=== PATIENT | female | born 1990 | race Caucasian/White ===

== ENCOUNTER → 2018-04-28 | Emergency (ER) | payer OTHER ==
[~2018-04-28] VITALS: Ht 172.7 cm; Wt 53.0 kg
[~2018-04-28] MED LIST: ALBU8.5H8 IH; AZIT-63 PO; CefTRIAXone 2gm/D5W 50ml 50 ML IV ONE; azithromycin 250mg tablet PO ONE; ketorolac trometh. 30mg/ml inj. IV ONE
[2018-04-28 14:44] VITALS: BP 147/99
[2018-04-28 14:47] LABS: BASOPHILS % (AUTO) 0.4 % (0-1); EOSINOPHILS # (AUTO) 0.1 X10'3 (0-0.9); EOSINOPHILS % (AUTO) 0.7 % (0-6); HEMATOCRIT 39.4 % (35.0-45.0); HEMOGLOBIN 13.2 g/dl (12.0-16.0); LYMPHOCYTES # (AUTO) 1.4 X10'3 (1.1-4.8); LYMPHOCYTES % (AUTO) 16.4 % (21-51); MEAN CORPUSCULAR HEMOGLOBIN 27.5 PG (27.0-31.0); MEAN CORPUSCULAR HGB CONC 33.4 g/dL (33.0-36.5); MEAN CORPUSCULAR VOLUME 82.5 FL (78-98); MEAN PLATELET VOLUME 7.8 FL (7.4-10.4); MONOCYTES # (AUTO) 0.9 X10'3 (0-0.9); MONOCYTES % (AUTO) 10.2 % (2-12); NEUTROPHILS # (AUTO) 6.3 X10'3 (1.8-7.7); NEUTROPHILS % (AUTO) 72.3 % (42-75); PLATELET COUNT 327 X10'3 (140-440); RED BLOOD COUNT 4.78 X10'6 (4.20-5.60); RED CELL DISTRIBUTION WIDTH 13.4 % (11.5-14.5); WHITE BLOOD COUNT 8.7 X10'3 (4.5-11.0)
[2018-04-28 14:57] LABS: ALANINE AMINOTRANSFERASE 223 U/L (12-78); ALBUMIN 3.4 G/DL (3.4-5.0); ALBUMIN/GLOBULIN RATIO 0.7 (1.1-1.5); ALKALINE PHOSPHATASE 142 IU/L (46-116); ANION GAP 10 (8-16); ASPARTATE AMINO TRANSFERASE 182 U/L (10-37); BILIRUBIN,TOTAL 0.3 MG/DL (0.1-1.0); BLOOD UREA NITROGEN 6 MG/DL (7-18); BUN/CREATININE RATIO 8.8 (6.6-38.0); CALCIUM 9.1 MG/DL (8.5-10.1); CHLORIDE 101 MMOL/L (99-107); CREATININE 0.68 MG/DL (0.40-0.90); GLUCOSE 101 MG/DL (70-104); POTASSIUM 3.9 MMOL/L (3.5-5.1); SODIUM 140 MMOL/L (135-145); TOTAL CARBON DIOXIDE 28.7 MMOL/L (24-32); TOTAL PROTEIN 8.3 G/DL (6.4-8.2); eGFR > 90 ML/MIN
== END | disposition home or self-care (01) ==
LOC: ER 14:13
DX: J18.9 Pneumonia, unspecified organism (principal); F15.90 Other stimulant use, unspecified, uncomplicated; Z79.899 Other long term (current) drug therapy
CPT/HCPCS: 36415; 71046; 80053; 83605; 84145; 85025; 87040; 96365; 96375; 99284; J0696; J1885

== ENCOUNTER 2021-07-02 01:30 | Emergency (ER) | payer MEDICAID ==
[~2021-07-02] VITALS: Ht 172.7 cm; Wt 79.5 kg
[~2021-07-02 01:30] MED LIST changes: +ALBU8.5H17 IH; -ALBU8.5H8 IH; -AZIT-63 PO; -CefTRIAXone 2gm/D5W 50ml 50 ML IV ONE; -azithromycin 250mg tablet PO ONE; -ketorolac trometh. 30mg/ml inj. IV ONE
[2021-07-02 02:14] LABS: ALANINE AMINOTRANSFERASE 378 U/L (12-78); ALBUMIN 4.2 G/DL (3.4-5.0); ALBUMIN/GLOBULIN RATIO 0.7 (1.1-1.5); ALKALINE PHOSPHATASE 194 IU/L (46-116); ANION GAP 11 (8-16); ASPARTATE AMINO TRANSFERASE 179 U/L (10-37); BILIRUBIN,TOTAL 0.8 MG/DL (0.1-1.0); BLOOD UREA NITROGEN 24 MG/DL (7-18); BUN/CREATININE RATIO 21.8 (6.6-38.0); CALCIUM 9.7 MG/DL (8.5-10.1); CHLORIDE 98 MMOL/L (99-107); GLUCOSE 116 MG/DL (70-104); LIPASE 93 U/L (73-393); POTASSIUM 3.9 MMOL/L (3.5-5.1); SODIUM 134 MMOL/L (135-145); TOTAL CARBON DIOXIDE 25.3 MMOL/L (24-32); TOTAL PROTEIN 10.2 G/DL (6.4-8.2); eGFR 59 ML/MIN
[2021-07-02 02:22] LABS: BASOPHILS % (AUTO) 0.3 % (0-1); EOSINOPHILS # (AUTO) 0.4 X10'3 (0-0.9); EOSINOPHILS % (AUTO) 2.7 % (0-6); HEMATOCRIT 51.4 % (35.0-45.0); HEMOGLOBIN 17.7 g/dl (12.0-16.0); LYMPHOCYTES # (AUTO) 2.2 X10'3 (1.1-4.8); LYMPHOCYTES % (AUTO) 15.2 % (21-51); MEAN CORPUSCULAR HEMOGLOBIN 28.8 PG (27.0-31.0); MEAN CORPUSCULAR HGB CONC 34.4 g/dL (33.0-36.5); MEAN CORPUSCULAR VOLUME 83.5 FL (78-98); MEAN PLATELET VOLUME 8.6 FL (7.4-10.4); MONOCYTES # (AUTO) 1.1 X10'3 (0-0.9); MONOCYTES % (AUTO) 7.3 % (2-12); NEUTROPHILS % (AUTO) 74.5 % (42-75); PLATELET COUNT 341 X10'3 (140-440); RED BLOOD COUNT 6.15 X10'6 (4.20-5.60); RED CELL DISTRIBUTION WIDTH 13.4 % (11.5-14.5); WHITE BLOOD COUNT 14.8 X10'3 (4.5-11.0)
[2021-07-02] MEDS ORDERED: loperamide 2mg capsule PO ONE (03:45)
[2021-07-02] MEDS ORDERED: normal saline 1000ML IV soln IVB ONE (03:45)
[2021-07-02] MEDS ORDERED: ondansetron/PF 4mg/2ml inj IV ONE (03:45)
[2021-07-02 04:00] LABS: URINE HCG NEGATIVE (NEG)
[2021-07-02 04:01] LABS: CLARITY,URINE CLOUDY (Clear); GLUCOSE, URINE NEGATIVE (Neg); KETONES,URINE TRACE mg/dl (Neg); LEUKOCYTE ESTERASE ,URINE TRACE (Neg); NITRITES, URINE NEGATIVE (Neg); OCCULT BLOOD,URINE NEGATIVE (Neg); PH,URINE 5.5 (4.8-8.0); PROTEIN,URINE 30 mg/dl (Neg); UROBILINOGEN,URINE 0.2 E.U/dL (0.2-1.0)
[2021-07-02] MEDS ORDERED: ondansetron 4mg rapidly disintigrating tab PO ONE (04:10)
[2021-07-02 04:17] LABS: COLOR,URINE DARK YELLOW (Yellow); UA COLLECTION TYPE CLN CATCH MIDSTREAM
[2021-07-02 04:25] LABS: BACTERIA,URINE 1+ /HPF (Neg); FINE GRANULAR CAST 0-3 /LPF (NEGATIVE); SQUAMOUS EPITHELIAL CELL,UR MODERATE /LPF (FEW)
[2021-07-02 04:26] LABS: RBC,URINE 0-2 /HPF (0-2)
--- NOTE | 2021-07-02 04:40 | NUR ---
ATTEMPTED TO GET ACCESS ON PT AND PT REFUSED TO PUT A LINE IN HANDS OR WRISTS BECAUSE, "IT REALLY JUST FREAKS ME OUT, AND I'M NOT ABOUT IT". INFORMED DR. SEXTON AND HE AGREED TO PROVIDING ORAL MEDICATIONS AND ATTEMPT TO GET PT TO INCREASE ORAL FLUIDS.
[2021-07-02] MEDS ORDERED: ONDA4TAB12 PO (05:08)
[2021-07-02] MEDS ORDERED: LOPE2CAP PO (05:08)
[2021-07-02 05:19] VITALS: BP 122/78
== END 2021-07-02 05:21 | disposition home or self-care (01) ==
LOC: ER 01:31
DX: K59.00 Constipation, unspecified (principal); F15.10 Other stimulant abuse, uncomplicated; Z79.899 Other long term (current) drug therapy
CPT/HCPCS: 36415; 80053; 81001; 81025; 83690; 85025; 87088; 99284

== ENCOUNTER 2021-08-20 22:13 | Emergency (ER) | payer MEDICAID ==
[~2021-08-20 22:13] MED LIST changes: +LOPE2CAP PO; +ONDA4TAB12 PO
== END 2021-08-20 23:33 | disposition left against medical advice (07) ==
LOC: ER 22:18
DX: Z00.00 Encounter for general adult medical examination without abnormal findings (principal); Z53.21 Procedure and treatment not carried out due to patient leaving prior to being seen by health care provider

== ENCOUNTER 2022-04-25 19:23 | Emergency (ER) | payer MEDICAID ==
[~2022-04-25] VITALS: Ht 172.7 cm; Wt 86.4 kg
[2022-04-25 19:33] VITALS: BP 139/85
[2022-04-25] MEDS ORDERED: guaiFENesin/codeine phos 10ml UD oral syrup PO ONE (20:10)
[2022-04-25] MEDS ORDERED: azithromycin 250mg tablet PO ONE (20:25)
[2022-04-25] MEDS ORDERED: AZIT-31 PO (20:29)
[2022-04-25] MEDS ORDERED: BENZ-38 PO (20:29)
== END 2022-04-25 20:51 | disposition home or self-care (01) ==
LOC: ER 19:25
DX: J18.9 Pneumonia, unspecified organism (principal); Z20.822 Contact with and (suspected) exposure to COVID-19; F15.10 Other stimulant abuse, uncomplicated; Z79.899 Other long term (current) drug therapy; Z79.1 Long term (current) use of non-steroidal anti-inflammatories (NSAID)
CPT/HCPCS: 71045; 87811; 99284

== ENCOUNTER 2022-07-14 03:11 | Emergency (ER) | payer MEDICAID ==
[~2022-07-14] VITALS: Ht 172.7 cm; Wt 90.9 kg
[2022-07-14 03:15] VITALS: BP 138/91
[2022-07-14] MEDS ORDERED: ondansetron 4mg rapidly disintigrating tab PO ONE (04:30)
[2022-07-14] MEDS ORDERED: acetaminophen 325mg tablet PO ONE (04:30)
[2022-07-14] MEDS ORDERED: amoxicillin 250mg capsule PO ONE (04:30)
[2022-07-14] MEDS ORDERED: AMOX500C2 PO (04:32)
[2022-07-14] MEDS ORDERED: HYDR-3965 PO (04:32)
== END 2022-07-14 04:49 | disposition home or self-care (01) ==
LOC: ER 03:11
DX: K08.89 Other specified disorders of teeth and supporting structures (principal); F15.20 Other stimulant dependence, uncomplicated
CPT/HCPCS: 99284

== ENCOUNTER 2022-07-28 22:00 | Emergency (ER) | payer MEDICAID ==
[~2022-07-28 22:00] MED LIST changes: +AMOX500C2 PO; +HYDR-3965 PO
== END 2022-07-28 22:35 | disposition left against medical advice (07) ==
LOC: ER 22:00
DX: K12.2 Cellulitis and abscess of mouth (principal); Z53.21 Procedure and treatment not carried out due to patient leaving prior to being seen by health care provider

== ENCOUNTER 2022-07-30 03:04 | Emergency (ER) | payer MEDICAID ==
[~2022-07-30] VITALS: Ht 172.7 cm; Wt 90.9 kg
[2022-07-30 03:10] VITALS: BP 143/93
[2022-07-30] MEDS ORDERED: CLIN150C2 PO (05:13)
== END 2022-07-30 05:22 | disposition home or self-care (01) ==
LOC: ER 03:04
DX: K08.89 Other specified disorders of teeth and supporting structures (principal); F19.90 Other psychoactive substance use, unspecified, uncomplicated; Z79.899 Other long term (current) drug therapy; Z79.2 Long term (current) use of antibiotics
CPT/HCPCS: 99283

== ENCOUNTER 2023-11-08 12:07 | Emergency (ER) | payer MEDICAID ==
[~2023-11-08] VITALS: Ht 172.7 cm; Wt 95.5 kg
[~2023-11-08 12:07] MED LIST changes: -AMOX500C2 PO; -HYDR-3965 PO; +ONDA-243 PO; -ONDA4TAB12 PO
[2023-11-08 12:16] VITALS: TEMP 97.3
[2023-11-08] MEDS ORDERED: AMOX-117 PO (14:04)
[2023-11-08] MEDS ORDERED: amox tr/potassium clavulanate 875/125mg TAB PO ONE (14:10)
[2023-11-08 14:12] VITALS: BP 133/75; PULSE 74; RESP 18; O2SAT 98
== END 2023-11-08 14:16 | disposition home or self-care (01) ==
LOC: ER 12:08
DX: K04.7 Periapical abscess without sinus (principal); K02.9 Dental caries, unspecified; K08.89 Other specified disorders of teeth and supporting structures; F15.90 Other stimulant use, unspecified, uncomplicated; Z79.2 Long term (current) use of antibiotics; Z79.899 Other long term (current) drug therapy
CPT/HCPCS: 99283

== ENCOUNTER 2024-05-14 12:06 | Emergency (ER) | payer MEDICAID ==
[~2024-05-14] VITALS: Ht 172.7 cm; Wt 94.3 kg
[2024-05-14 12:50] VITALS: BP 142/98; PULSE 71; RESP 18; TEMP 97.8; O2SAT 98
[2024-05-14] MEDS ORDERED: PRED20TA PO (12:59)
[2024-05-14] MEDS: dexamethasone sod phosphate 10mg/ml inj PO STA (13:26)
== END 2024-05-14 13:28 | disposition home or self-care (01) ==
LOC: ER 12:07
DX: L23.89 Allergic contact dermatitis due to other agents (principal); F15.90 Other stimulant use, unspecified, uncomplicated
CPT/HCPCS: 99283; J1100

== ENCOUNTER 2024-09-07 20:24 | Emergency (ER) | payer MEDICAID ==
[~2024-09-07] VITALS: Ht 172.7 cm; Wt 73.0 kg
[2024-09-07 20:32] VITALS: BP 135/90; PULSE 113; O2SAT 98
[2024-09-07] MEDS ORDERED: IBUP-1986 PO (22:16)
[2024-09-07] MEDS ORDERED: AMOX-580 PO (22:16)
--- NOTE | 2024-09-07 22:16 | Physician Documentation ---
HPI ~ General Chief Complaint: Tooth Problem Stated Complaint: TOOTH ABSCESS Time Seen by MD: 22:05 Primary Medical Doctor: NONE History of Present Illness HPI Comment This is a 33-year-old female who presents with right lower dental pain and right lower cheek swelling for the past two days. Patient reports no fevers. Patient reports no difficulty breathing or swallowing. Patient reports no other acute symptoms or concerns. Patient reports she is looking at a dentist appointment in the [place] area. Medication Reconciliation Allergies: Coded Allergies: No Known Allergies (Unverified , 09/07/24) Scheduled Amox Tr/Potassium Clavulanate 875/125 MG (Augmentin 875/125 MG), 1 TAB PO BID Ibuprofen (Ibuprofen), 1 TAB PO Q8H Loperamide Hcl (Loperamide), 2 CAP PO Q6H ONDANSETRON ODT 4mg tablet (Ondansetron Odt), 1-2 TABLET PO Q6H Scheduled PRN Albuterol Sulfate (Proair Hfa), 2 PUFFS IH Q4H PRN for SOB or wheezing Past Medical History Past Medical History: No Pertinent History Past Surgical History: no surgical history Alcohol Use: None Drug Use: methamphetamine Lives In: Home Occupation: employed Review of Systems ROS Dental pain as stated above in the HPI, otherwise all systems are reviewed and negative. Physical Exam Vital Signs: Temperature: 98.6, Source: Temporal, Heart Rate: 113, Respiratory Rate: 15, BP: 135/90, Pulse Oximetry: 98, Weight: 73.000 Physical Exam VITALS: Reviewed and as above. GENERAL: Alert, nontoxic appearing, no apparent distress. HEENT: Right lower rear molars severely decayed, surrounding gingiva erythema without discharge or swelling, mild left lower cheek swelling and tenderness, no submandibular swelling, no elevation of the tongue, uvula midline, pharynx nonerythematous, tonsils non swollen, no drooling RESPIRATORY: No increased work of breathing, no respiratory distress, speaking in full clear sentences Progress Results/Orders Results/Orders Completed Orders - DANIEL GONSALEZ Ketorolac Trometh 15mg/Ml Vial (Toradol (09/07/24 22:20) Amox Tr/Potassium Clavulanate (Augmentin (09/07/24 22:20) Medications Received in ER Medications (Trade) Dose Ordered Sig/Willy Route PRN Reason Start Time Stop Time Status Last Admin Dose Admin (Toradol injection) 15 mg ONCE ONCE IM 09/07/24 22:20 09/07/24 22:25 DC 09/07/24 22:29 15 MG (Augmentin 875-125mg tablet) 1 tab ONCE ONCE PO 09/07/24 22:20 09/07/24 22:21 DC 09/07/24 22:26 1 TAB Vital Signs 09/07/24 09/07/24 09/07/24 20:32 22:21 22:29 Temp 98.6 98.6 Pulse 113 Resp 15 18 B/P (MAP) 135/90 Pulse Ox 98 Medical Decision Making Findings This well appearing 33-year-old female presented with dental pain to the right rear lower molars. Based on history and physical exam I have low clinical suspicion for peritonsillar abscess, uvulitis, deep tissue space infection of the head/neck, or impending airway compromise. There was no submandibular swelling or elevation of the tongue, the uvula was midline, patient is able to swallow fluids and secretion without difficulty, there is no increased work of breathing or noisy breathing. Based on presentation I am concerned for odontogenic infection and antibiotic treatment with Augmentin is indicated. Pain control with non-narcotic medications is appropriate at this time. Patient is otherwise well-appearing and appropriate for outpatient follow up. Patient instructed to follow up as soon as possible with dentist and provided careful return to care precautions which she verbalized understanding of. Differential Dx:Considerations: Include: Alveolar fracture, Alveolar osteitis, ANUG, Facial Cellulitis, Periapical abscess, Peridontal abscess Departure Disposition: HOME / SELF CARE / HOMELESS Impression: Primary Impression: Toothache Condition: Improved Discharge Instructions: Dental Pain Additional Instructions: Please follow up with a dentist as soon as possible. Please take the antibiotics as prescribed. Do not take ibuprofen or naproxen for the next 12 hours as you received an injection of Toradol in the emergency department. You may use Tylenol in addition to the prescribed ibuprofen as needed for pain as directed by [id number] packaging. Please also follow up with your primary care provider in the next few days. Please return to the emergency department for any new or worsening concerning symptoms. Referrals: NO PRIMARY CARE PROVIDER (PCP) Prescriptions Ibuprofen (Ibuprofen) 800 Mg Tablet 1 TAB PO Q8H for pain for 10 Days, #30 TAB 0 Refills Prov: DANIEL GONSALEZ 09/07/24 Amox Tr/Potassium Clavulanate 875/125 MG (Augmentin 875/125 MG) 875 Mg-125 Mg Tablet 1 TAB PO BID for 7 Days, #14 TAB Prov: DANIEL GONSALEZ 09/07/24 Education Educated: Patient Educated regarding: diagnosis, treatment, prognosis, need for follow up Signature Scribe Signature: No scribe Attestation: The note accurately reflects work and decisions made by me.PIERO Santana 09/08/24 01:55 DANIEL GONSALEZ Sep 07, 2024 22:16
[2024-09-07 22:21] VITALS: TEMP 98.6
[2024-09-07] MEDS: amox tr/potassium clavulanate 875/125mg TAB PO ONE (22:26)
[2024-09-07 22:29] VITALS: RESP 18
[2024-09-07] MEDS: ketorolac trometh 15mg/ml vial 15 MG/ML ML IM ONE (22:29)
== END 2024-09-07 22:33 | disposition home or self-care (01) ==
LOC: ER 20:25
DX: K08.89 Other specified disorders of teeth and supporting structures (principal); F15.90 Other stimulant use, unspecified, uncomplicated; Z79.899 Other long term (current) drug therapy
CPT/HCPCS: 96372; 99283; J1885